=== PATIENT | female | born 1995 | race Caucasian/White ===

== ENCOUNTER 2024-12-31 20:20 | Emergency (ER) | payer OTHER, SELFPAY ==
[2024-12-31 21:04] LABS: Absolute Eosinophils 0.1 K/uL (0-0.5); Absolute Monocytes 0.5 K/uL (0.1-1.3); Absolute Neutrophil 4.3 K/uL (1.8-8.0); Basophils % 0.6 % (0-1.3); Eosinophils % 1.2 % (0-4.4); Hematocrit 37.6 % (36.0-45.0); Hemoglobin 12.7 g/dL (12.0-15.0); Lymphocytes % 28.8 % (15.3-44.8); MCH 29.3 pg (27.0-35.0); MCHC 33.8 g/dL (32.0-36.0); MCV 86.7 fL (80-100); MPV 7.5 fL (7.6-11.3); Monocytes % 7.3 % (3.3-12.3); Neutrophils % 62.1 % (41.7-73.7); Platelets 285 thou/uL (152-406); RBC Red Blood Cell Count 4.33 M/uL (3.86-4.86); Red Cell Distribution Width 12.5 % (12.1-15.2)
[2024-12-31 21:16] LABS: PT Prothrombin Time 12.3 SECONDS (10.0-13.0); PTT, Activated Partial Thromb 29.8 SECONDS (24.3-36.9); Protime INR 1.08
[2024-12-31 21:54] LABS: ALT/SGPT 18 U/L (13-56); AST/SGOT 15 U/L (15-37); Albumin 3.9 g/dL (3.4-5.0); Alkaline Phosphatase 63 U/L (45-117); Anion Gap 9.2 mEq/L (5.0-15.0); BUN Blood Urea Nitrogen 5 mg/dL (7-18); Bicarbonate 26 mEq/L (21-32); Bilirubin Direct 0.2 mg/dL (0-0.2); Bilirubin Indirect, Calculated 0.3 mg/dL (0.2-0.8); Bilirubin Total 0.5 mg/dL (0.2-1.0); Globulin 3.9 g/dL (2.3-3.5); Glomerular Filtration Rate 105 ml/min (=/>90); Glucose Level 115 mg/dL (74-106); Potassium 3.2 mEq/L (3.5-5.1); Protein, Total 7.8 g/dL (6.4-8.2); Sodium Level 137 mEq/L (136-145)
[2024-12-31 21:56] LABS: Sqamous Epithelial <5 /HPF (None Seen); Urine Bacteria <20 /HPF (<20); Urine Bilirubin NEGATIVE (Negative); Urine Blood 3+ (OVER) (Negative); Urine Clarity Turbid (Clear); Urine Color Colorless (Yellow); Urine Culture Reflex Order NOT NEEDED; Urine Glucose NEGATIVE (Negative); Urine Ketones NEGATIVE (Negative); Urine Microscopic Reflex YN ORDER UMIC; Urine Mucus 1+ /HPF (None Seen); Urine Nitrite NEGATIVE (Negative); Urine Protein TRACE (Negative); Urine RBC >50 /HPF (None Seen); Urine Urobilinogen Normal (Normal); Urine pH 6.5 (5.0-7.0)
[2024-12-31 22:00] LABS: Barbiturates NEGATIVE (NEGATIVE); Benzodiazepines POSITIVE (NEGATIVE); Cocaine NEGATIVE (NEGATIVE); METHAMPHETAM POSITIVE (NEGATIVE); Methadone NEGATIVE (NEGATIVE); Opiates NEGATIVE (NEGATIVE); Phencyclidine NEGATIVE (NEGATIVE); THC Cannibis NEGATIVE (NEGATIVE)
--- NOTE | 2024-12-31 22:23 | RAD REPORT ---
EXAM: CT Head Brain Wo Cont HISTORY: facial trauma;Confused COMPARISON: None available TECHNIQUE: Multiple contiguous axial images were obtained for a CT of the brain without contrast. Sag ittal and coronal reformats were performed. One or more of the following dose reduction techniques were used: Automated exposure control, adjus tment of the mA and kV according to patient size, and iterative reconstruction. Unless otherwise specified, incidental findings do not require dedicated imaging follow-up. FINDINGS: No evidence of hydrocephalus, intracranial hemorrhage, or extra-axial fluid collection. The brain is normal in morphology. The calvarium is intact. Left orbital floor and lamina papyracea blowout fractures. Abnormal configur ation of the left inferior rectus muscle, could be partially herniated or tethered against a bony fragment. Fractures of the left inferior orbital margin and left lateral orbital wall, as well as vera pected left lateral maxillary sinus wall fractures. Mildly displaced left nasal bone fractures. Suspected extraconal small hematoma along the medial aspect of the left orbit measuring 2.2 mm in thi ckness, see series 204 image 20. Opacification of the left maxillary sinus with air-fluid levels, as well as the left air cells. IMPRESSION: No evidence of acute intracranial abnormality. Multiple facial fractures, most notably with left orbital floor and medial wall blowout fractures. Po ssible partial herniation or tethering of the left inferior rectus muscle. Suspected small medial left orbital extraconal hematoma measuring 2.2 mm in thickness. THIS REPORT CONTAINS FINDINGS THAT MAY BE CRITICAL TO PATIENT CARE. The findings were verbally commun icated via telephone to Aj Bello on 12/31/2024 10:15 PM.
--- NOTE | 2024-12-31 22:48 | ER ---
Nurse's Notes [facility] Name: Rob Hawkins Age: 29 yrs Sex: Female : 1995 Arrival Date: 12/31/2024 Time: 20:20 Bed 13 Private MD: Diagnosis: Fracture of orbital floor;Medial Wall Blow out fracture;Adverse effect of amphetamines, initial encounter;Adverse effect of benzodiazepines, initial encounter Presentation: 12/31 20:23 Chief complaint: EMS states: patient has no memory of her name, the situation that is rg5 going on. she has a bruise on her left eye and pain on the left side of the face. 20:23 Coronavirus screen: At this time, unable to obtain information related to travel rg5 outside the [place] Initial Sepsis Screen: Does the patient meet any 2 criteria? No. Patient's initial sepsis screen is negative. Does the patient have a suspected source of infection? No. Patient's initial sepsis screen is negative. Risk Assessment: Do you want to hurt yourself or someone else? Patient reports no desire to harm self or others. Onset of symptoms was December 31, 2024. 20:23 Method Of Arrival: EMS: [facility] rg5 20:23 Acuity: SHENA 3 rg5 20:30 Ebola Screen: Patient negative for fever greater than or equal to 101.5 degrees rg5 Fahrenheit, and additional compatible Ebola Virus Disease symptoms Patient denies exposure to infectious person. Patient denies travel to an Ebola-affected area in the 21 days before illness onset. Triage Assessment: 20:23 General: Appears uncomfortable, Behavior is calm, cooperative, anxious. Pain: Complains rg5 of pain in nose, left cheek and left eye Pain currently is 7 out of 10 on a pain scale. Quality of pain is described as aching. Neuro: Level of Consciousness is confused. Cardiovascular: Patient's skin is warm and dry. Respiratory: Airway is patent Trachea midline Respiratory effort is even, unlabored, Respiratory pattern is regular, symmetrical. 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 - Infectious Disease History:: Denies. - Social history:: Smoking status: unknown. Screenin:09 [facility] ED Fall Risk Assessment (Adult) History of falling in the last 3 months, rg5 including since admission No falls in past 3 months (0 pts) Confusion or Disorientation Yes (5 pts) Intoxicated or Sedated No (0 pts) Impaired Gait No (0 pts) Mobility Assist Device Used No (0 pt) Altered Elimination No (0 pt) Score/Fall Risk Level 0 - 2 = Low Risk Oriented to surroundings, Maintained a safe environment, Hourly rounding (assess needs \\T\\ fall precautionary measures) done. Abuse screen: Denies threats or abuse. Nutritional screening: No deficits noted. Tuberculosis screening: No symptoms or risk factors identified. Assessment: 21:00 Reassessment: No changes from previously documented assessment. Patient and/or family rg5 updated on plan of care and expected duration. Pain level reassessed. 22:23 Reassessment: No changes from previously documented assessment. Patient and/or family rg5 updated on plan of care and expected duration. Pain level reassessed. Pain: Denies pain. Cardiovascular: Capillary refill < 3 seconds Patient's skin is warm and dry. Rhythm is sinus rhythm. Respiratory: Airway is patent Trachea midline Respiratory effort is even, unlabored. Musculoskeletal: Circulation, motion, and sensation intact. Range of motion: intact in all extremities. 23:00 Reassessment: No changes from previously documented assessment. Patient and/or family rg5 updated on plan of care and expected duration. Pain level reassessed. Psych: 20:30 [place] Suicide Severity Screening: In the past month, have you wished you were rg5 or wished you could go to sleep and not wake up? Patient responds "No." "In the past month, have you actually had any thoughts of killing yourself?" Patient responds "no." "In your lifetime, have you ever done anything, started to do anything, or prepared to do anything to end your life?" Patient responds "no.". Subjective: Patient's mood is sad. Objective: Patient is cooperative, Speech is normal. 20:30 Pt denies substance abuse. rg5 Vital Signs: 20:23 Pulse 76; Resp 18; Temp 98.2; Pulse Ox 100% on R/A; Weight 78.93 kg; Pain 7/10; rg5 21:46 BP 126 / 84; Pulse 77; Resp 17; Pulse Ox 100% on R/A; Pain 0/10; rg5 22:45 BP 122 / 83; Pulse 75; Resp 18; Pulse Ox 100% on R/A; Pain 0/10; rg5 20:23 Pain Scale: Adult rg5 21:46 Pain Scale: Adult rg5 22:45 Pain Scale: Adult rg5 ED Course: 20:23 Patient arrived in ED. ms3 20:23 Aj Bello DO is Attending Physician. ms3 20:23 Arm band placed on right wrist. rg5 20:28 Sarwat Rene, RN is Primary Nurse. rg5 20:30 Patient has correct armband on for positive identification. Call light in reach. Side rg5 rails up X 1. Door closed. Noise minimized. Warm blanket given. 20:30 Patient maintains SpO2 saturation greater than 95% on room air. rg5 20:32 Triage completed. rg5 20:35 No provider procedures requiring assistance completed. Inserted saline lock: 20 gauge rg5 in left antecubital area, using aseptic technique. Blood collected. Flushed with 10 mL NS. 21:31 CT Head Brain wo Cont In Process Unspecified. EDMS 22:44 Chan William DDS is Referral Physician. ms3 23:10 Provided Education on: post er care done. rg5 23:10 IV discontinued, bleeding controlled, No redness/swelling at site. Pressure dressing rg5 applied. Administered Medications: No medications were administered Medication: 23:10 VIS not applicable for this client. rg5 Outcome: 22:47 Discharge ordered by MD. ms3 23:09 Discharged to home ambulatory, rg5 23:09 Condition: stable 23:09 Discharge instructions given to patient, family, Instructed on discharge instructions, follow up and referral plans. Demonstrated understanding of instructions, follow-up care, 23:10 Patient left the ED. rg5 Signatures: Dispatcher [employer] EDMS Aj Bello DO DO ms3 Sarwat Rene, RN RN rg5
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
[2024-12-31 23:20] VITALS: TEMP 98.2; O2SAT 100
[2024-12-31 23:23] VITALS: BP 122/83
--- NOTE | 2025-01-02 12:01 | EKG ---
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
== END 2024-12-31 23:10 | disposition home or self-care (01) ==
LOC: EDBD 20:20 → ER 20:20
DX: S02.32XA Fracture of orbital floor, left side, initial encounter for closed fracture (principal); S02.832A Fracture of medial orbital wall, left side, initial encounter for closed fracture; T43.625A Adverse effect of amphetamines, initial encounter
CPT/HCPCS: 36415; 70450; 80048; 80076; 80143; 80179; 80307; 81001; 81025; 82077; 85025; 85610; 85730; 93005; 99284